=== PATIENT | male | born 1970 | race Caucasian/White ===

== ENCOUNTER 2024-09-20 20:41 | Outpatient (REF) | payer OTHER, SELFPAY ==
[2024-09-20 18:51] LABS: Abs Immature Grans 0.02 10^3/uL (0.0-0.06); Absolute Basophil Count 0.02 10^3/uL (0.0-0.2); Absolute Monocyte Count 0.78 10^3/uL (0.1-0.8); Absolute Neutrophil Count 6.06 10^3/uL (1.2-6.7); Basophils % 0.2 %; Eosinophils % 1.1 %; HCT 43.4 % (40.0-50.0); HGB 14.8 g/dL (13.5-17.5); Immature Grans % 0.2 %; Lymphocytes % 22.3 %; MCH 31.3 pg (27.0-33.0); MCHC 34.1 % (32.0-36.0); MCV 92 fL (80-95); MPV 9.6 fL (8.0-11.0); Monocytes % 8.7 %; Neutrophils % 67.5 %; Platelet Count 241 10^3/uL (130-400); RBC 4.73 10^6/uL (4.36-5.78); RDW 13.3 % (11.8-14.1); RDW-SD 45.2 fL; WBC 8.98 10^3/uL (4.4-10.8)
[2024-09-20 19:21] LABS: ALT 26 U/L (16-63); AST 18 U/L (15-37); Albumin 4.1 g/dL (3.4-5.0); Alkaline Phosphatase 81 U/L (46-116); Anion Gap 6.9 mmol/L (3-11); BUN 11 mg/dL (7-18); Bilirubin, Total 0.84 mg/dL (0.2-1.0); CO2 31.1 mmol/L (21.0-32.0); CREATININE 0.9 mg/dL (0.70-1.30); Calculated LDL 179 mg/dL (<100); Chloride 106 mmol/L (98-107); Cholesterol 244 mg/dL (<200); Estimated GFR 101.49 (mL/min/1.73m2); Glucose 86 mg/dL (74-106); HDL Cholesterol 46 mg/dL (40-60); Magnesium 2.1 mg/dL (1.8-2.4); Potassium 4.5 mmol/L (3.5-5.1); Sodium 144 mmol/L (136-145); TSH 0.97 uIU/mL (0.36-3.74); Triglyceride 96 mg/dL (<150)
[2024-09-20 19:26] LABS: Hemoglobin A1C 5.4 % (<5.7)
== END 2024-09-20 20:42 | disposition home or self-care (01) ==
LOC: NCHCN 20:41
PROVIDERS: Visit Provider Family Medicine
DX: Z00.00 Encounter for general adult medical examination without abnormal findings (principal)
CPT/HCPCS: 80053; 80061; 84153; 83036; 83735; 84443; 85025